=== PATIENT | female | born 1965 | race Caucasian/White ===

== ENCOUNTER → 2019-07-26 | Outpatient (CLI) | payer MEDICARE ==
[~2019-07-26] MED LIST: REGADENOSON 0.4 MG/5 ML DISP.SYRIN. IV ONE
--- NOTE | 2019-07-26 12:33 | PCVCIMAG ---
APPROVED REPORT Study performed: 07/26/2019 07:41:57 EXAM: Comprehensive 2D, Doppler, and color-flow Echocardiogram Patient Location: Echo lab Status: routine BSA: 2.42 HR: 83 bpmBP: 160/70 mmHg Rhythm: NSR Other Information Study Quality: Adequate Risk Factors: Cardiac Risk Factors: HTN Indications Dyspnea CAD edema 2D Dimensions IVSd: 13.09 (7-11mm) LVDd: 41.83 mm PWd: 11.81 (7-11mm)Ascending Ao: 31.72 (22-36mm) LVDs: 27.75 (25-40mm) Left Atrium: 34.23 (27-40mm) Aortic Root: 30.72 mm LV Single Plane 4CH: 48.82 % LV Single Plane 2CH: 51.38 % Biplane EF: 49.5 % Volumes Left Atrial Volume (Systole) Single Plane 4CH: 63.60 mLSingle Plane 2CH: 70.36 mL LA ESV Index: 28.00 mL/m2 Aortic Valve AoV Peak Evan.: 1.64 m/s AO Peak Gr.: 10.77 mmHgLVOT Max P.49 mmHg LVOT Max V: 1.17 m/s Mitral Valve E/A Ratio: 1.3 MV Decel. Time: 173.33 ms MV E Max Evan.: 0.75 m/s MV A Evan.: 0.58 m/s IVRT: 72.66 ms Pulmonary Valve PV Peak Evan.: 1.19 m/sPV Peak Gr.: 5.63 mmHg Pulmonary Vein P Vein S: 0.32 m/sP Vein A: 0.37 m/s P Vein D: 0.47 m/sP Vein A Dur.: 162.6 msec P Vein S/D Ratio: 0.68 Tricuspid Valve TR Peak Evan.: 2.71 m/s TR Peak Gr.: 29.47 mmHg Left Ventricle The left ventricle is normal size. There is normal LV segmental wall motion. Mild concentric left ventricular hypertrophy. Left ventricular systolic function is normal. The left ventricular ejection fraction is within the normal range. LVEF is 55%. Right Ventricle The right ventricle is normal size. The right ventricular systolic function is normal. Atria The left atrium size is normal. The right atrium size is normal. Aortic Valve The aortic valve is normal in structure. No aortic regurgitation is present. There is no aortic valvular stenosis. Mitral Valve The mitral valve is normal in structure. Trace mitral regurgitation. No evidence of mitral valve stenosis. Tricuspid Valve The tricuspid valve is normal in structure. Mild tricuspid regurgitation with PAP of 36 mmHg. Pulmonic Valve The pulmonary valve is normal in structure. There is no pulmonic valvular regurgitation. Great Vessels The aortic root is normal in size. IVC is normal in size and collapses >50% with inspiration. Pericardium There is no pericardial effusion. There is no pleural effusion. <Conclusion> The left ventricle is normal size. Mild concentric left ventricular hypertrophy. Left ventricular systolic function is normal. The right ventricle is normal size. The left atrium size is normal. The aortic valve is normal in structure. Trace mitral regurgitation. Mild tricuspid regurgitation with PAP of 36 mmHg.
== END | disposition home or self-care (01) ==
LOC: PCVCIMAG 09:16
PROVIDERS: ATTEND Internal Medicine Cardiovascular Disease
DX: I07.1 Rheumatic tricuspid insufficiency (principal); I25.10 Atherosclerotic heart disease of native coronary artery without angina pectoris; E78.00 Pure hypercholesterolemia, unspecified; R60.9 Edema, unspecified; I11.9 Hypertensive heart disease without heart failure; E03.9 Hypothyroidism, unspecified; E11.9 Type 2 diabetes mellitus without complications; G47.33 Obstructive sleep apnea (adult) (pediatric); E78.5 Hyperlipidemia, unspecified; Z79.899 Other long term (current) drug therapy
CPT/HCPCS: 93005; 93306; G0463; J2785